=== PATIENT | female | born 1995 | race American Indian/Alaskan Native ===

== ENCOUNTER 2021-09-13 03:49 | Outpatient (CLI) | payer MEDICAID, OTHER ==
[2021-09-13 04:41] LABS: Bilirubin,Urine NEG (Negative); Blood,Urine NEG (Negative); Color,Urine Straw (Yellow); Protein,Urine <15 mg/dL mg/dL (Negative); Urobilinogen,Urine < 2.0 mg/dL (<2.0)
[2021-09-13 04:45] LABS: Bacteria,Urine 1+ /HPF (Negative); Mucus,Urine FEW /HPF
[2021-09-13 04:48] VITALS: BP 112/57
== END 2021-09-13 06:30 | disposition home or self-care (01) ==
LOC: TRG 03:49 → APU 03:52 → TRG 06:30
PROVIDERS: ATTEND Obstetrics & Gynecology
DX: O26.893 Other specified pregnancy related conditions, third trimester (principal); R10.84 Generalized abdominal pain; Z3A.32 32 weeks gestation of pregnancy
CPT/HCPCS: 81001

== ENCOUNTER 2021-10-10 17:57 | Outpatient (CLI) | payer MEDICAID ==
[2021-10-10 19:52] VITALS: BP 123/60
== END 2021-10-10 22:15 | disposition home or self-care (01) ==
LOC: TRG 17:57 → APU 19:21 → TRG 22:15
PROVIDERS: ATTEND Obstetrics & Gynecology
DX: Z34.93 Encounter for supervision of normal pregnancy, unspecified, third trimester (principal); Z3A.32 32 weeks gestation of pregnancy
CPT/HCPCS: 59025

== ENCOUNTER 2021-10-11 12:50 | Emergency (ER) | payer MEDICAID ==
[2021-10-11 13:53] LABS: Bacteria,Urine 1+ /HPF (Negative); Mucus,Urine FEW /HPF
[2021-10-11 14:04] LABS: Bilirubin,Urine Negative (Negative); Blood,Urine Negative (Negative); Color,Urine Straw (Yellow); Urobilinogen,Urine < 2.0 mg/dL (<2.0)
[2021-10-11 14:14] LABS: Amphetamine Screen,Urine PRESUMPTIVE NEGATIVE; Benzodiazepines Screen,Urine PRESUMPTIVE NEGATIVE; Cannabinoid Screen,Urine PRESUMPTIVE NEGATIVE; Cocaine Screen,Urine PRESUMPTIVE NEGATIVE; Methadone Screen,Urine PRESUMPTIVE NEGATIVE; Opiate Screen,Urine PRESUMPTIVE NEGATIVE
[2021-10-11 14:23] LABS: Basophils % (Auto) 0.1 % (0.0-1.8); Eosinophils % (Auto) 0.4 % (0.0-4.3); Hematocrit 29.9 % (30.3-42.9); Hemoglobin 9.5 gm/dl (10.1-14.3); Lymphocytes # (Auto) 1.1 K/mm3 (1.2-5.4); Mean Corpuscular HGB Conc 32 % (30-34); Mean Corpuscular Volume 70 fl (79-97); Monocytes # (Auto) 0.9 K/mm3 (0.0-0.8); Monocytes % (Auto) 12.4 % (0.0-7.3); Platelet Count 189 K/mm3 (140-440); Red Blood Count 4.26 M/mm3 (3.65-5.03); Red Cell Distribution Width 16.9 % (13.2-15.2)
--- NOTE | 2021-10-11 14:29 | Emergency Department Report ---
ED Psych HPI - General Chief Complaint: Psych Stated Complaint: DEPRESSION/HOMELESS Time Seen by Provider: 10/11/21 12:56 Source: patient Mode of arrival: Ambulatory - History of Present Illness Initial Comments: Patient is a 26-year-old female sent from labor and delivery for psychiatric evaluation. She is reportedly 8 months and homeless and reported feeling depressed during her visit today. States she was given resources for homeless [facility] however they were not taking any people in today. States she became even more depressed and was sent here for evaluation. She endorses suicidal ideations. - Related Data Allergies Allergy/AdvReac Type Severity Reaction Status Date / Time No Known Allergies Allergy Verified 10/11/21 12:53 ED Review of Systems ROS: Stated complaint: DEPRESSION/HOMELESS Other details as noted in HPI Constitutional: denies: chills, fever Respiratory: denies: cough, shortness of breath, wheezing Cardiovascular: denies: chest pain, palpitations Gastrointestinal: denies: abdominal pain, nausea, diarrhea Genitourinary: denies: urgency, dysuria, discharge Musculoskeletal: denies: back pain, joint swelling, arthralgia Skin: denies: rash, lesions Neurological: denies: headache, weakness, paresthesias Psychiatric: depression ED Past Medical Hx - Past Medical History Hx Hypertension: No Hx Diabetes: No Hx Deep Vein Thrombosis: No Hx Renal Disease: No Hx Sickle Cell Disease: No Hx Seizures: No Hx Asthma: Yes (BRONCHITIS) Hx HIV: No - Social History Smoking Status: Never Smoker ED Physical Exam - General Limitations: Other General appearance: alert, in no apparent distress - Head Head exam: Present: atraumatic, normocephalic - Respiratory Respiratory exam: Present: normal lung sounds bilaterally. Absent: respiratory distress - Cardiovascular Cardiovascular Exam: Present: regular rate, normal rhythm, normal heart sounds - GI/Abdominal GI/Abdominal exam: Present: other (Gravid abdomen). Absent: tenderness - Neurological Exam Neurological exam: Present: alert, oriented X3 - Psychiatric Psychiatric exam: Present: depressed, suicidal ideation - Skin Skin exam: Present: warm, dry, intact, normal color ED Medical Decision Making - Lab Data Result diagrams: 10/11/21 13:27 - Medical Decision Making 26-year-old female at 8 weeks gestation presenting with complaint of homeless, depression and suicidal thoughts. Will obtain full set of labs and follow 1013. Critical care attestation.: If time is entered above; I have spent that time in minutes in the direct care of this critically ill patient, excluding procedure time. ED Disposition Clinical Impression: Suicidal ideation, Depression affecting Disposition: 30 STILL A PATIENT Is pt being admited?: No Does the pt Need Aspirin: No Condition: Stable
[2021-10-11 14:41] LABS: Blood Urea Nitrogen 7 mg/dL (7-17); Calcium 9.3 mg/dL (8.4-10.2); Hemolysis Index 2
[2021-10-11 14:43] LABS: BUN/Creatinine Ratio 18
[2021-10-12] MEDS ORDERED: cephALEXin 500 MG CAP PO ONE (11:19)
--- NOTE | 2021-10-12 11:20 | Event Note ---
Date: 10/12/21 vss, no events overnight, medically cleared, awaiting psych assessment
--- NOTE | 2021-10-12 12:32 | Consultation ---
History of Present Illness - Reason for Consult Consult date: 10/12/21 Reason for consult: depression - History of Present Psychiatric Illness - History of Present Psychiatric Illness The patient was seen today. She is . The patient says 8 months. She is calm, and cooperative. She seems a little annoyed. The patient says she doesn't have anywhere to go. She says it makes her depressed. She says the resources they gave her yesterday [place] a [place] [facility] was not taking anyone else. She denies SI/HI or hallucinations. She is asking for a [place] [facility] [place]. I ask the patient if she has any family support, she says "that's not the issue." PAST PSYCHIATRIC HISTORY: Diagnoses: Depression Suicide attempts or Self-harm behavior: Denies Prior psychiatric hospitalizations: Denies Substance Abuse history: Denies Previous psychiatric medications tried: Denies Outpatient treatment: Denies PAST MEDICAL HISTORY: None reported Family Psychiatric History: None reported or documented SOCIAL HISTORY Marital Status: Single Living Arrangements: Homeless Employment Status: Unemployed Access to guns/weapons: Denies Education: History of Abuse: Denies Legal History: Denies REVIEW OF SYSTEMS ROS cannot be reliably obtained from the patient due to her confusion and so mnolence. Constitutional: Negative for weight loss ENT: Negative for stridor Respiratory: Negative for cough or hemoptysis All other systems reviewed and are negative Diagnoses: Major Depressive Disorder Treatment Plan No scripts given Medical: Per primary Disposition: Do not recommend acute psychiatric inpatient treatment The security assessor to give the patient all necessary outpatient resources including [place] [facility] and housing Will sign off. Thanks Case staffed with Dr. Narvaez Medications and Allergies Allergies Allergy/AdvReac Type Severity Reaction Status Date / Time No Known Allergies Allergy Verified 10/11/21 12:53 Mental Status Exam - Vital signs Last Vital Signs Temp 98.9 F 10/11/21 13:43 Pulse 88 10/11/21 13:43 Resp 18 10/11/21 13:43 BP 100/58 10/11/21 13:43 Pulse Ox 97 10/11/21 16:02 Results Result Diagrams: 10/11/21 13:27 10/11/21 13:27 Abnormal lab results 10/11/21 10/11/21 10/11/21 Range/Units 13:27 13:27 13:27 Hgb 9.5 L (10.1-14.3) gm/dl Hct 29.9 L (30.3-42.9) % MCV 70 L (79-97) fl MCH 22 L (28-32) pg RDW 16.9 H (13.2-15.2) % Colbert % (Auto) 12.4 H (0.0-7.3) % Lymph # (Auto) 1.1 L (1.2-5.4) K/mm3 Colbert # (Auto) 0.9 H (0.0-0.8) K/mm3 Seg Neutrophils % 71.1 H (40.0-70.0) % Sodium 135 L (137-145) mmol/L Potassium 3.4 L (3.6-5.0) mmol/L Carbon Dioxide 21 L (22-30) mmol/L Creatinine 0.4 L (0.6-1.2) mg/dL Salicylates < 0.3 L (2.8-20.0) mg/dL Acetaminophen (10.0-30.0) ug/mL 10/11/21 Range/Units 13:27 Hgb (10.1-14.3) gm/dl Hct (30.3-42.9) % MCV (79-97) fl MCH (28-32) pg RDW (13.2-15.2) % Colbert % (Auto) (0.0-7.3) % Lymph # (Auto) (1.2-5.4) K/mm3 Colbert # (Auto) (0.0-0.8) K/mm3 Seg Neutrophils % (40.0-70.0) % Sodium (137-145) mmol/L Potassium (3.6-5.0) mmol/L Carbon Dioxide (22-30) mmol/L Creatinine (0.6-1.2) mg/dL Salicylates (2.8-20.0) mg/dL Acetaminophen 5.0 L (10.0-30.0) ug/mL All other labs normal.
[2021-10-12 12:46] VITALS: BP 101/57
== END 2021-10-12 14:43 | disposition home or self-care (01) ==
LOC: ED 12:50
DX: O99.341 Other mental disorders complicating pregnancy, first trimester (principal); R45.851 Suicidal ideations; J45.909 Unspecified asthma, uncomplicated; Z20.822 Contact with and (suspected) exposure to COVID-19; Z59.00 Homelessness unspecified; Z3A.08 8 weeks gestation of pregnancy
CPT/HCPCS: 36415; 80048; 80307; 81001; 85025; 99284; U0003; 80320; G0480

== ENCOUNTER 2021-10-11 19:16 | Outpatient (CLI) | payer MEDICAID ==
[2021-10-11 21:38] LABS: Bacteria,Urine 1+ /HPF (Negative); Calcium Oxalate Crystals,Urine 3+; Mucus,Urine 1+ /HPF
[2021-10-11 21:40] LABS: Amphetamine Screen,Urine PRESUMPTIVE NEGATIVE; Benzodiazepines Screen,Urine PRESUMPTIVE NEGATIVE; Cannabinoid Screen,Urine PRESUMPTIVE NEGATIVE; Cocaine Screen,Urine PRESUMPTIVE NEGATIVE; Hematocrit 32.3 % (30.3-42.9); Hemoglobin 10.1 gm/dl (10.1-14.3); Mean Corpuscular HGB Conc 31 % (30-34); Mean Corpuscular Volume 72 fl (79-97); Methadone Screen,Urine PRESUMPTIVE NEGATIVE; Opiate Screen,Urine PRESUMPTIVE NEGATIVE; Platelet Count 199 K/mm3 (140-440); Red Blood Count 4.52 M/mm3 (3.65-5.03); Red Cell Distribution Width 16.8 % (13.2-15.2)
[2021-10-11 21:47] LABS: Bilirubin,Urine Negative (Negative); Color,Urine Yellow (Yellow)
[2021-10-11 21:48] LABS: Blood,Urine Negative (Negative)
[2021-10-11 21:57] LABS: Alanine Aminotransferase 8 units/L (7-56); Albumin 3.7 g/dL (3.9-5); Blood Urea Nitrogen 10 mg/dL (7-17); Calcium 9.2 mg/dL (8.4-10.2); Hemolysis Index 1
[2021-10-11 21:58] LABS: BUN/Creatinine Ratio 20
[2021-10-11 23:15] VITALS: BP 130/68
--- NOTE | 2021-10-11 23:21 | Ultrasound Report ---
ULTRASOUND OBSTETRIC ULTRASOUND BIOPHYSICAL PROFILE INDICATION: BPP. Clinical Gestational Age (GA): Not provided. TECHNIQUE: Transabdominal. COMPARISON: None available. FINDINGS: There is a single intrauterine . Biparietal Diameter = 9.13 cm = 37 weeks, 0 day(s). Head Circumference = 32.96 cm = 37 weeks, 4 day(s). Abdominal Circumference = 28.09 cm = 32 weeks, 1 day(s). Femur Length = 6.11 cm = 31 weeks, 5 day(s). Average Ultrasound Age (AUA) = 3 4 weeks, 4 day(s). Heart Rate: 138 beats per minute. Estimated Weight in grams (if calculated): 2018. Estimated Weight Growth Percentile (if calculated): Not calculated Position: cephalic. Cervix: closed. Length in cm (if measured): Not measured Placenta: maternal right and free of the os. Amniotic Fluid Volume: normal Amniotic Fluid Index (JULIAN) in cm (if calculated): 11.2. Maternal Adnexa: No significant abnormality. BREATHING MOVEMENT = 2 GROSS BODY MOVEMENT = 2 TONE = 2 QUALITATIVE AMNIOTIC FLUID VOLUME = 2 TOTAL BIOPHYSICAL SCORE = 8/8 IMPRESSION: 1. Single, living intrauterine with estimated sonographic age of 34 weeks, 4 day(s). 2. Biophysical profile score of 8/8. Signer Name: Deandre Monroy MD Signed: 10/11/2021 11:17 PM Workstation Name: [id number]
--- NOTE | 2021-10-12 09:27 | Consultation ---
History of Present Illness - Reason for Consult Consult date: 10/12/21 Reason for consult: depression - History of Present Psychiatric Illness The patient was seen today. She is . The patient says 8 months. She is calm, and cooperative. She seems a little annoyed. The patient says she doesn't have anywhere to go. She says it makes her depressed. She says the resources they gave her yesterday for a [facility] was not taking anyone else. She denies SI/HI or hallucinations. She is asking for a [facility]. I ask the patient if she has any family support, she says "that's not the issue." PAST PSYCHIATRIC HISTORY: Diagnoses: Depression Suicide attempts or Self-harm behavior: Denies Prior psychiatric hospitalizations: Denies Substance Abuse history: Denies Previous psychiatric medications tried: Denies Outpatient treatment: Denies PAST MEDICAL HISTORY: None reported Family Psychiatric History: None reported or documented SOCIAL HISTORY Marital Status: Single Living Arrangements: Homeless Employment Status: Unemployed Access to guns/weapons: Denies Education: History of Abuse: Denies Legal History: Denies REVIEW OF SYSTEMS ROS cannot be reliably obtained from the patient due to her confusion and somnolence. Constitutional: Negative for weight loss ENT: Negative for stridor Respiratory: Negative for cough or hemoptysis All other systems reviewed and are negative Diagnoses: Major Depressive Disorder Treatment Plan No scripts given Medical: Per primary Disposition: Do not recommend acute psychiatric inpatient treatment The polymer chemist to give the patient all necessary outpatient resources including [facility] and housing Will sign off. Thanks Case staffed with Dr. Narvaez Medications and Allergies Allergies Allergy/AdvReac Type Severity Reaction Status Date / Time No Known Allergies Allergy Verified 10/11/21 12:53 Mental Status Exam - Vital signs Last Vital Signs Temp 97.2 F L 10/11/21 19:58 Pulse 106 H 10/11/21 23:14 Resp BP 130/68 10/11/21 23:14 Pulse Ox 98 10/11/21 22:37 Results Result Diagrams: 10/11/21 20:30 10/11/21 20:30 Abnormal lab results 10/11/21 10/11/21 10/11/21 Range/Units 20:30 20:30 20:30 MCV 72 L (79-97) fl MCH 22 L (28-32) pg RDW 16.8 H (13.2-15.2) % Sodium 132 L (137-145) mmol/L Carbon Dioxide 21 L (22-30) mmol/L Creatinine 0.5 L (0.6-1.2) mg/dL Glucose 64 L (65-100) mg/dL Albumin 3.7 L (3.9-5) g/dL Urine WBC (Auto) 21.0 H (0.0-6.0) /HPF All other labs normal.
== END 2021-10-11 22:48 | disposition other institution, planned readmission (95) ==
LOC: TRG 19:16 → APU 19:17 → TRG 22:48
PROVIDERS: ATTEND Obstetrics & Gynecology
DX: O26.893 Other specified pregnancy related conditions, third trimester (principal); R10.9 Unspecified abdominal pain; Z3A.32 32 weeks gestation of pregnancy
CPT/HCPCS: 36415; 76816; 76819; 80053; 80307; 81001; 85027; 87086